=== PATIENT | male | born 1980 | race Caucasian/White ===

== ENCOUNTER 2018-12-03 09:17 | Emergency (ER) | payer SELFPAY ==
[~2018-12-03] VITALS: Ht 182.9 cm; Wt 77.1 kg
[2018-12-03 09:19] VITALS: Ht 182.9 cm; Wt 77.1 kg
[2018-12-03 10:21] LABS: BASOPHIL % 0.4 % (0-2); PLATELET COUNT 264 x10^3mcL (130-400); RED CELL DISTRIBUTION WIDTH 12.1 % (11.5-14.5)
[2018-12-03 10:36] LABS: CALCIUM 9.3 mg/dL (8.5-10.1); CARBON DIOXIDE 25.7 mmol/L (21-32); CHLORIDE SERUM 106 mmol/L (98-107); GFR1 > 60 mL/min; GLUCOSE SERUM 205 mg/dL (74-106); POTASSIUM SERUM 4.2 mmol/L (3.5-5.1); SODIUM SERUM 143 mmol/L (136-145)
[2018-12-03 10:40] LABS: ALBUMIN 4.2 g/dL (3.4-5.0); ALKALINE PHOSPHATASE 44 U/L (46-116); ALT/SGPT 75 U/L (16-63); AST/SGOT 27 U/L (15-37); BILIRUBIN TOTAL 0.43 mg/dL (0.20-1.00); TOTAL PROTEIN, SERUM 7.8 g/dL (6.4-8.2)
[2018-12-03 11:12] VITALS: BP 123/99
== END 2018-12-03 11:04 | disposition home or self-care (01) ==
LOC: EDBD 09:17 → ED 09:17
PROVIDERS: Emergency Medicine
DX: H81.399 Other peripheral vertigo, unspecified ear (principal); R10.13 Epigastric pain; R11.2 Nausea with vomiting, unspecified; I10 Essential (primary) hypertension
CPT/HCPCS: J0780; J1200; J8597

== ENCOUNTER 2018-12-05 10:03 | Emergency (ER) | payer SELFPAY ==
[~2018-12-05] VITALS: Ht 177.8 cm; Wt 73.5 kg
[2018-12-05 10:05] VITALS: Ht 177.8 cm; Wt 73.5 kg
[2018-12-05 10:24] VITALS: BP 134/86
== END 2018-12-05 10:24 | disposition home or self-care (01) ==
LOC: ED 10:03
DX: Z02.79 Encounter for issue of other medical certificate (principal)